=== PATIENT | male | born 1980 | race African-American/Black ===

== ENCOUNTER 2018-01-10 20:38 | Emergency (ER) | payer SELFPAY ==
[2018-01-10] MEDS ORDERED: predniSONE 20 MG TAB ONE (21:14)
== END 2018-01-10 21:51 | disposition home or self-care (01) ==
LOC: ERS 20:38
DX: J45.901 Unspecified asthma with (acute) exacerbation (principal); Z79.899 Other long term (current) drug therapy
CPT/HCPCS: J7506; J7620

== ENCOUNTER 2018-08-29 02:54 | Emergency (ER) | payer SELFPAY ==
[2018-08-29] MEDS ORDERED: Dexamethasone 10 MG/ML VIAL ONE (04:00)
[2018-08-29] MEDS ORDERED: Albuterol Sulfate 2.5 mg/3 ml Neb ONE (04:06)
[2018-08-29] MEDS ORDERED: Albuterol Sulfate 2.5 mg/0.5 ml Neb ONE (04:07)
== END 2018-08-29 04:44 | disposition home or self-care (01) ==
LOC: ERS 02:54
DX: J45.901 Unspecified asthma with (acute) exacerbation (principal); F17.210 Nicotine dependence, cigarettes, uncomplicated; Z79.51 Long term (current) use of inhaled steroids
CPT/HCPCS: J1100; J7611